=== PATIENT | male | born 1940 | race Hispanic/Latino ===

== ENCOUNTER 2017-06-22 09:42 | Emergency (ER) | payer MEDICARE, MEDICAID ==
[2017-06-22 09:42] VITALS: BMI 25.9
[2017-06-22 10:46] LABS: BASO # 0.1 K/uL (0.0-0.2); BASO % 0.8 % (0.0-2.0); EOS # 0.1 K/uL (0.0-0.7); EOS % 1.7 % (0.0-4.0); HEMATOCRIT 38.1 % (35.0-51.0); LYMPH # 1.4 K/uL (1.0-4.3); LYMPH % 19.7 % (20.0-40.0); MEAN CELL VOLUME 92.8 fL (80.0-94.0); MEAN CORPUSCULAR HEMOGLOBIN 30.9 pg (27.0-31.0); MEAN CORPUSCULAR HGB CONC 33.2 g/dL (33.0-37.0); MEAN PLATELET VOLUME 8.2 fL (7.2-11.7); MONO # 0.4 K/uL (0.0-0.8); MONO % 5.7 % (0.0-10.0); NRBC % 0.1 % (0.0-2.0); RED CELL DISTRIBUTION WIDTH 15.8 % (11.5-14.5)
[2017-06-22 10:54] LABS: CHLORIDE 99 mmol/L (98-107); INR 2.8; POTASSIUM 4.1 mmol/L (3.6-5.2); SODIUM 142 mmol/L (132-148)
[2017-06-22 10:56] LABS: BILIRUBIN,TOTAL 0.7 mg/dL (0.2-1.3); GFR AFRICAN-AMERICAN > 60
[2017-06-22 10:57] LABS: ALB/GLOB RATIO 0.9 (1.0-2.1); ALKALINE PHOSPHATASE 163 U/L (38-126); ALT/SGPT 27 U/L (21-72); AST/SGOT 33 U/L (17-59); BLOOD UREA NITROGEN 19 mg/dL (9-20); CALCIUM 8.6 mg/dl (8.6-10.4); CARBON DIOXIDE 29 mmol/L (22-30); GLUCOSE,RANDOM 92 mg/dL (75-110); TOTAL PROTEIN 7.3 g/dL (6.3-8.3)
--- NOTE | 2017-06-22 11:25 | CT ---
PROCEDURE: CT HEAD WITHOUT CONTRAST. HISTORY: FALL, ON COUMADIN COMPARISON: None available. TECHNIQUE: Axial computed tomography images were obtained through the head/brain without intravenous contrast. Radiation dose: Total exam DLP = 1524.54 mGy-cm. This CT exam was performed using one or more of the following dose reduction techniques: Automated exposure control, adjustment of the mA and/or kV according to patient size, and/or use of iterative reconstruction technique. FINDINGS: HEMORRHAGE: No intracranial hemorrhage. BRAIN: Diffuse atrophy with prominence of the ventricles and sulci noted. No mass effect or edema. Intracranial atherosclerosis. Evidence of encephalomalacia involving the right cerebellum. Scattered periventricular and subcortical white matter hypodensities, which are nonspecific, but often seen with chronic microvascular ischemic disease. Please note that MRI with diffusion imaging is more sensitive in the detection of acute ischemic event. VENTRICLES: No hydrocephalus. CALVARIUM: Unremarkable. PARANASAL SINUSES: Mucosal thickening of the left maxillary sinus. No air-fluid levels evident. MASTOID AIR CELLS: Deformity osseous destruction of the right mastoid air cells which are partially opacified. Adjacent soft tissue/scalp thickening. The left mastoid air cells appear clear. OTHER FINDINGS: Opacification of the right external auditory canal. Partial opacification of the left external auditory canal. Partially imaged severe soft tissue thickening/heterogeneity soft tissues of the face, particularly extending towards the mandible. Recommend CT of the maxillofacial bones. IMPRESSION: Generalized atrophy. Nonspecific white matter changes Evidence of small region of encephalomalacia involving the right cerebellum. Deformity/osseous destruction involving right mastoid air cells which are partially opacified. Adjacent soft tissue/ scalp thickening. Correlate clinically for otomastoiditis. Partially imaged severe soft tissue thickening/heterogeneity soft tissues of the face, particularly extending towards the mandible. Recommend CT of the maxillofacial bones. Additional findings as above.
[2017-06-22 12:11] LABS: RBC URINE 13 /hpf (0-3); URINE BILIRUBIN NEGATIVE (NEGATIVE); URINE BLOOD 1+ (NEGATIVE); URINE COLOR Yellow (YELLOW); URINE GLUCOSE (UA) NORMAL (Normal); URINE KETONE NEGATIVE (NEGATIVE); URINE LEUKOCYTE ESTERASE NEG Leu/uL (Negative); URINE PROTEIN 1+ mg/dL (NEGATIVE); URINE UROBILINOGEN NORMAL mg/dL (0.2-1.0); WBC URINE < 1 /hpf (0-5)
--- NOTE | 2017-06-22 12:12 | C.PDOC ---
History Of Present Illness 77-year-old male sent from [facility] for evaluation of an unwitnessed fall from wheelchair. Patient states he fell on floor (slipped off chair), and does not think he hit his head, is vague about details of fall. Patient denies current pain. PMHx of CHF, COPD, HTN, Atrial fibrillation, basal cell carcinoma. - HPI Time Seen by Provider: 06/22/17 09:48 Chief Complaint (Nursing): Trauma History Per: Patient, EMS History/Exam Limitations: no limitations Onset/Duration Of Symptoms: Other (HAND CLIPPER) Injury Occurred (Timing): Just Before Arrival Past Medical History Reviewed: Historical Data, Nursing Documentation, Vital Signs Vital Signs: Last Vital Signs Temp 97.9 F 06/22/17 16:30 Pulse 81 06/22/17 16:30 Resp 18 06/22/17 16:30 BP 164/60 H 06/22/17 16:30 Pulse Ox 96 06/22/17 16:30 - Medical History PMH: Alzheimer's Disease, Atrial Fibrillation, CHF, COPD, Fractures (left hip), HTN, Peripheral Edema Family History: States: No Known Family Hx - Social History Hx Alcohol Use: No Hx Substance Use: No - Immunization History Hx Tetanus Toxoid Vaccination: No Hx Influenza Vaccination: No Hx Pneumococcal Vaccination: No Review Of Systems Except As Marked, All Systems Reviewed And Found Negative. Constitutional: Negative for: Fever, Chills Cardiovascular: Negative for: Chest Pain, Palpitations Respiratory: Negative for: Shortness of Breath Musculoskeletal: Negative for: Neck Pain, Back Pain, Leg Pain Skin: Negative for: Rash Neurological: Negative for: Weakness, Numbness Physical Exam - Physical Exam Appears: Well, Non-toxic, No Acute Distress Skin: Warm, Dry, No Rash Head: Atraumatic, Normacephalic Eye(s): bilateral: Normal Inspection, PERRL, EOMI Ear(s): Left: Other (left lower eyelid mildly drooping, no erythema/discharge) Nose: Normal Oral Mucosa: Moist Tongue: Normal Appearing, No Swelling Lips: Normal Appearing, No Swelling Throat: Normal, No Erythema, No Exudate Neck: No Midline Cervical Tenderness, No Paracervical Tenderness, No Step Off Deformity, Supple Cardiovascular: Rhythm Regular Respiratory: Normal Breath Sounds, No Rales, No Rhonchi, No Wheezing Gastrointestinal/Abdominal: Normal Exam, Bowel Sounds, Soft, No Tenderness Back: Other (Thoracic: at [facility] T10-T11 level on right (+) palpable mass with overlying ecchymosis. ) Extremity: No Calf Tenderness, Capillary Refill (< 2 sec all digits ), No Deformity, No Swelling, Other (Wound to dorsal aspect of right hand - U shaped approx 3.5cm laceration with skin avulsion, right proximal forearm with 2 approx 1.5 cm skin avulsions ) Extremity: Bilateral: Normal ROM Pulses: Left Radial: Normal, Right Radial: Normal Neurological/Psych: Oriented x3, Normal Speech, Normal Cognition Gait: Steady ED Course And Treatment - Laboratory Results Result Diagrams: 06/22/17 10:43 06/22/17 10:43 ECG: Interpreted By Me, Viewed By Me (sinus rhythm 77 bpm, PACs, left axis deviation, RBBB, no acute ST/T wave changes) ECG Rhythm: Sinus Rhythm, R BBB ECG Interpretation: No Acute Changes Interpretation Of ECG: LAD Rate From EC O2 Sat by Pulse Oximetry: 94 (on RA) Pulse Ox Interpretation: Normal - Radiology CXR: Interpreted by Me, Viewed By Me (no infiltrates/effusions) - Other Rad right hand Xray X-Ray: Interpreted by Me, Viewed By Me (no fractures/dislocations) hips/pelvis Xray X-Ray: Interpreted by Me, Viewed By Me (no fractures/dislocations, hardware intact) Progress Note: Bloodwork, CT Head/Maxillofacial, UA, CXR, XRays of hand and right hip ordered and reviewed. 15:10- Patient currently resting comfortably, in no current pain/distress. He is s/p lac repair done by me. Blood work and UA umremarkable, and CT (-) for acute injuries/bleed. Patient will be discharged back to [facility], currently pending transporation. Reevaluation Time: 14:50 Reassessment Condition: Improved (Patient currently resting comfortably. He states he has cancer (basal cell CA), of the face (right and left sides), which is already being treated. No evidence on physical exam of facial cellulitis.) Laceration - Laceration Repair RIGHT HAND Wound Length (In cm): 3.5CM Description Of Wound: Irregular (U SHAPED) Wound Cleansed With: Sterile Saline Anesthesia: Lidocaine 1% (approx 4ml), With Epi Wound Examination: Irrigated With Saline, No FB With Wound Exploration Wound Closure: Suture Suture Technique And Material Used: Interrupted Wound Complexity: Simple (5 ethilon 3.0) Disposition Counseled Patient/Family Regarding: Studies Performed, Diagnosis, Need For Followup - Disposition Referrals: Shaw Juarez MD [Staff Provider] - Disposition: HOME/ ROUTINE Disposition Time: 15:00 Condition: STABLE Additional Instructions: SUTURE REMOVAL FROM RIGHT HAND IN 5-7 DA[address] FOLLOW UP WITH DR JUAREZ IN 1-2 DAYS RETURN TO ER IF YOU HAVE ANY CONCERNING SYMPTOMS Instructions: Laceration (ED), Fall Prevention for Older Adults (ED) Forms: General Discharge Instructions Print Language: TANZANIAN - POA Present On Arrival: Falls Or Trauma - Clinical Impression Clinical Impression: Fall from wheelchair, Laceration of right hand, Skin avulsion, Facial basal cell cancer
[2017-06-22] MEDS ORDERED: Lidocaine 1%/Epinephrine 1:100000 30 ml vial INJ STA (13:38)
[2017-06-22] MEDS ORDERED: Lidocaine 2% w Epi 1:100,000 Inj IJ ONE (13:45)
--- NOTE | 2017-06-22 13:54 | RAD ---
PROCEDURE: CHEST RADIOGRAPH, 1 VIEW HISTORY: FALL IN [place] COMPARISON: None available. FINDINGS: LUNGS: The lungs are clear. There is question of an artifact in the right middle lobe. PLEURA: No pneumothorax or pleural fluid seen. CARDIOVASCULAR: Normal. OSSEOUS STRUCTURES: No significant abnormalities. VISUALIZED UPPER ABDOMEN: Normal. OTHER FINDINGS: None. IMPRESSION: No acute findings.
--- NOTE | 2017-06-22 14:00 | RAD ---
Pelvis and bilateral hips four views History: Fall. Comparison: None available. Findings: Limited study as there is prominent gas distention of bowel which limits evaluation of the sacrum and bilateral iliac bones. Moderate degenerative changes of the right hip with joint space narrowing. Postsurgical changes seen with intramedullary bashir and dynamic screw transfixing a proximal left femoral fracture. Heterotopic bone and or productive change and or loose osteochondral bodies at the medial left femoral neck. Productive change with sclerosis at the pubic symphysis. Calcified phleboliths in the pelvis. Impression: Limited study as there is prominent gas distention of bowel which limits evaluation of the sacrum and bilateral iliac bones. Moderate degenerative changes of the right hip with joint space narrowing. Postsurgical changes seen with intramedullary bashir and dynamic screw transfixing a proximal left femoral fracture. Heterotopic bone and or productive change and or loose osteochondral bodies at the medial left femoral neck. Productive change with sclerosis at the pubic symphysis. Calcified phleboliths in the pelvis. If pain persists, consider MRI.
[2017-06-22] MEDS ORDERED: Bacitracin 500 Units/gm Oint Foilpak UD ONE (14:03)
--- NOTE | 2017-06-22 14:05 | RAD ---
Right hand four views History: Injury. Comparison: None available. Findings: Diffuse osteopenia. Mild heterotopic bone formation or ossific density seen at the radial base of the 2nd proximal phalanx. Mild subluxation of the 1st MTP joint space. Small radiopaque density at the volar aspect of the 1st interphalangeal joint space. Impression: Diffuse osteopenia. Mild heterotopic bone formation or ossific density seen at the radial base of the 2nd proximal phalanx. Mild subluxation of the 1st MTP joint space. Small radiopaque density at the volar aspect of the 1st interphalangeal joint space. If pain persists, consider MRI.
--- NOTE | 2017-06-22 14:38 | CT ---
PROCEDURE: CT MAXILLOFACIAL BONES WITHOUT CONTRAST HISTORY: recommended by radiology, right face swelling COMPARISON: None TECHNIQUE: Contiguous axial CT images of the maxillofacial bones were obtained. Coronal and sagittal reformats were generated. Radiation dose: Total exam DLP = 938.38 mGy-cm. This CT exam was performed using one or more of the following dose reduction techniques: Automated exposure control, adjustment of the mA and/or kV according to patient size, and/or use of iterative reconstruction technique. FINDINGS: NASAL BONES: Unremarkable. ORBITS: Unremarkable. PARANASAL SINUSES/ MASTOIDS: There is polypoid mucosal thickening in the left maxillary sinus. There is also osteoneogenesis and multifocal dehiscence in the posterior and lateral maxillary wall. There is also mucosal thickening in the left sphenoid chamber The remaining included paranasal sinuses are clear. MAXILLA: There is abnormal premaxillary soft-tissue extending into the supra zygomatic wagon driver salesperson space and pterygopalatine fossa. There is left facial soft tissue swelling stranding of the subcutaneous fat. MANDIBLE/ TEMPOROMANDIBULAR JOINTS: Unremarkable. SKULL BASE: There is enlargement of the left medial and lateral pterygoid muscles. TEMPORAL BONES: Middle ears and mastoid grossly unremarkable. OTHER FINDINGS: None. IMPRESSION: 1. Findings are most compatible with left facial cellulitis with abnormal soft tissue in the premaxillary space, pterygopalatine fossa and supra zygomatic wagon driver salesperson space as well as enlargement of the left pterygoid muscles. Please note evaluation is limited in the absence of intravenous contrast. 2. Also noted is left maxillary and left sphenoid sinusitis which may be acute in the appropriate clinical setting.
[2017-06-22 16:33] VITALS: BP 164/60; PULSE 81; RESP 18; TEMP 97.9
--- NOTE | 2017-06-24 09:06 | CARD ---
APPROVED REPORT EKG Measurement Heart [id number] <Conclusion> Sinus rhythm with premature atrial complexes with aberrant conduction Left axis deviation Right bundle branch block Lateral infarct, age undetermined Abnormal ECG
[2017-06-26 12:51] VITALS: O2SAT 94
== END 2017-06-22 16:33 | disposition home or self-care (01) ==
LOC: C.ER 09:42
DX: S61.411A Laceration without foreign body of right hand, initial encounter (principal); W05.0XXA Fall from non-moving wheelchair, initial encounter; Y93.9 Activity, unspecified; Y92.129 Unspecified place in nursing home as the place of occurrence of the external cause; C76.0 Malignant neoplasm of head, face and neck; G30.9 Alzheimer's disease, unspecified; F02.80 Dementia in other diseases classified elsewhere, unspecified severity, without behavioral disturbance, psychotic disturbance, mood disturbance, and anxiety; I10 Essential (primary) hypertension; J44.9 Chronic obstructive pulmonary disease, unspecified; Z72.0 Tobacco use